=== PATIENT | male | born 1970 | race Two or more races ===

== ENCOUNTER 2018-03-25 04:03 | Emergency (ER) | payer SELFPAY ==
[~2018-03-25] VITALS: Ht 152.4 cm; Wt 86.2 kg
[2018-03-25] MEDS ORDERED: KETOROLAC 30 MG/ML VIAL. IV ONE (04:45)
[2018-03-25] MEDS ORDERED: DEXAMETHASONE SOD PHOS 4 MG/ML VIAL IV ONE (04:45)
--- NOTE | 2018-03-25 04:53 | PHYS DOC ---
Past Medical History Past Medical History: Hypertension, Other Additional Past Medical Histor: "Neck swelling" Past Surgical History: No Surgical History Additional Information: 1 pack per week Alcohol Use: Rarely Drug Use: None Adult General Chief Complaint Chief Complaint: Neck Pain HPI HPI Patient is a 47 year old male who presents with neck swelling, tender cervical lymphadenopathy, starting 2 days prior to ED arrival. Patient states neck feels tight around his throat extending onto his chest. Denies sore throat, throat tightness, airway swelling, difficulty speaking, dysphonia or dysphagia. No fever chills, nausea vomiting and sweats. Reports only mild rhinitis. States he had similar symptoms approximately 2 years ago since [place] out of state. No other acute symptoms or complaints. [] Review of Systems Review of Systems Review symptoms as per history of present illness. All other review symptoms are negative. All other systems were reviewed and found to be within normal limits, except as documented in this note. Current Medications Current Medications Current Medications Medications (Trade) Dose Ordered Sig/Clyde Start Time Stop Time Status Last Admin Dose Admin Dexamethasone Sodium Phosphate (Decadron) 10 mg 1X ONCE 03/25/18 04:45 03/25/18 04:46 DC 03/25/18 04:51 10 MG Ketorolac Tromethamine (Toradol 30mg Vial) 30 mg 1X ONCE 03/25/18 04:45 03/25/18 04:46 DC 03/25/18 04:52 30 MG Allergies Allergies Allergies Coded Allergies Type Severity Reaction Last Updated Verified No Known Drug Allergies 03/25/18 No Physical Exam Physical Exam Constitutional: Well developed, well nourished, no acute distress, non-toxic appearance. [] HENT: Normocephalic, atraumatic, bilateral external ears normal, oropharynx moist, nose normal, no dysphonia drooling or trismus. [] Eyes: PERRLA, EOMI, conjunctiva normal, no discharge. [] Neck: Normal range of motion, anterior cervical lymphadenopathy with moderate submandibular swelling. [] Cardiovascular:Heart rate regular rhythm, no murmur [] Lungs & Thorax: Bilateral breath sounds clear to auscultation.[] Abdomen: Bowel sounds normal, soft, no tenderness. [] Skin: Warm, dry. [] Back: No tenderness. [] Extremities: No tenderness, no clubbing, no edema. [] Neurologic: Alert and oriented X 3, normal motor function, normal sensory function, no focal deficits noted. [] Psychologic: Affect normal, judgement normal, mood normal. [] Current Patient Data Vital Signs Vital Signs Date Time Temp Pulse Resp B/P (MAP) Pulse Ox O2 Delivery O2 Flow Rate FiO2 03/25/18 05:02 80 14 137/71 (93) 98 Room Air 03/25/18 04:03 98.1 98.1 Lab Values Laboratory Tests Test 03/25/18 04:45 White Blood Count 11.0 x10^3/uL (4.0-11.0) Red Blood Count 5.59 x10^6/uL (4.30-5.70) Hemoglobin 16.7 g/dL (13.0-17.5) Hematocrit 48.4 % (39.0-53.0) Mean Corpuscular Volume 87 fL (79-100) Mean Corpuscular Hemoglobin 30 pg (25-35) Mean Corpuscular Hemoglobin Concent 35 g/dL (31-37) Red Cell Distribution Width 13.6 % (11.5-14.5) Platelet Count 239 x10^3/uL (140-400) Neutrophils (%) (Auto) 50 % (31-73) Lymphocytes (%) (Auto) 34 % (24-48) Monocytes (%) (Auto) 9 % (0-9) Eosinophils (%) (Auto) 6 % (0-3) H Basophils (%) (Auto) 0 % (0-3) Neutrophils # (Auto) 5.5 x10^3uL (1.8-7.7) Lymphocytes # (Auto) 3.7 x10^3/uL (1.0-4.8) Monocytes # (Auto) 1.0 x10^3/uL (0.0-1.1) Eosinophils # (Auto) 0.7 x10^3/uL (0.0-0.7) Basophils # (Auto) 0.0 x10^3/uL (0.0-0.2) Heterophil Agglutinins Negative (NEGATIVE) Laboratory Tests 03/25/18 04:45 EKG EKG [] Radiology/Procedures Radiology/Procedures [Chest x-ray: No acute cardiopulmonary disease.] Course & Med Decision Making Course & Med Decision Making Pertinent Labs and Imaging studies reviewed. (See chart for details) [Patient with anterior cervical lymphadenopathy. No fever, elevated white blood cell count. Patient is able to swallow without difficulty. Lab work performed and is reassuring. We'll place on brief course of antibiotics and steroids with instructions to closely monitor symptoms and to follow-up with his PCP in the next 2-3 days for reevaluation. Return precautions reviewed. Patient verbalizes understanding agreement with discharge instructions prior to departure.] Dragon Disclaimer Dragon Disclaimer This electronic medical record was generated, in whole or in part, using a voice recognition dictation system. Departure Departure Impression: Primary Impression: Cervical lymphadenopathy Disposition: HOME, SELF-CARE Condition: GOOD Additional Instructions: You were evaluated emergency department for swelling lymph nodes of your neck. Lab work was performed and was nondiagnostic. Please take steroids for the next 5 days and antibiotics as directed. Follow-up with your PCP for reevaluation. If you develop new or worsening symptoms, please return to the emergency department. Scripts Azithromycin (ZITHROMAX) 250 Mg Tablet 1 PKG PO UD, #6 TAB 2 pills by mouth day 1, one pill by mouth days 2 through 5 Prov: JAK DUBOSE DO 03/25/18 Prednisone (PREDNISONE) 50 Mg Tablet 1 TAB PO DAILY, #5 TAB Prov: JAK DUBOSE DO 03/25/18 JAK DUBOSE DO Mar 25, 2018 04:53
[2018-03-25 04:54] LABS: BASO % 0 % (0-3); EOS # 0.7 x10^3/uL (0.0-0.7); EOS % 6 % (0-3); HEMATOCRIT 48.4 % (39.0-53.0); HEMOGLOBIN 16.7 g/dL (13.0-17.5); LYMPH # 3.7 x10^3/uL (1.0-4.8); LYMPH % 34 % (24-48); MEAN CORPUSCULAR HEMOGLOBIN 30 pg (25-35); MEAN CORPUSCULAR HGB CONC 35 g/dL (31-37); MEAN CORPUSCULAR VOLUME 87 fL (79-100); MONO % 9 % (0-9); NEUT # 5.5 x10^3uL (1.8-7.7); NEUT % 50 % (31-73); PLATELET COUNT 239 x10^3/uL (140-400); RED BLOOD COUNT 5.59 x10^6/uL (4.30-5.70); RED CELL DISTRIBUTION WIDTH 13.6 % (11.5-14.5)
--- NOTE | 2018-03-25 05:01 | RAD ---
Chest radiograph 03/25/2018 4:42 AM INDICATION: Chest pain COMPARISON: None available TECHNIQUE: Frontal view of the chest is provided. FINDINGS: The cardiomediastinal silhouette is within normal limits. There are no pleural effusions. There is no pulmonary vascular congestion. There is no pneumothorax. The lungs are clear. No significant osseous abnormality is identified. IMPRESSION: No acute cardiopulmonary process. Electronically signed by: Anjali Gaitan MD (03/25/2018 4:58 AM) [facility]
[2018-03-25 05:03] LABS: MONONUCLEOSIS PATIENT NEGATIVE (NEGATIVE)
[2018-03-25 05:32] VITALS: BP 139/66
[2018-03-25] MEDS ORDERED: PRED50TA PO (05:57)
[2018-03-25] MEDS ORDERED: AZIT250T PO (05:57)
== END 2018-03-25 06:00 | disposition home or self-care (01) ==
LOC: ER 04:03
DX: R59.0 Localized enlarged lymph nodes (principal); I10 Essential (primary) hypertension; F17.200 Nicotine dependence, unspecified, uncomplicated; J31.0 Chronic rhinitis
CPT/HCPCS: 36415; 71045; 85025; 86140; 86308; 96374; 96375; 99284; J1100; J1885

== ENCOUNTER 2018-09-15 18:23 | Emergency (ER) | payer SELFPAY ==
[~2018-09-15] VITALS: Ht 162.6 cm; Wt 81.6 kg
[~2018-09-15 18:23] MED LIST: AZIT250T PO; PRED50TA PO
[2018-09-15 18:31] VITALS: BP 211/107
[2018-09-15] MEDS ORDERED: NAPROXEN 500 MG TABLET PO STA (18:35)
[2018-09-15] MEDS ORDERED: HYDROcodone/APAP 5/325MG 1 TAB TABLET PO ONE (18:45)
[2018-09-15] MEDS ORDERED: CYCLOBENZAPRINE 10 MG TABLET. PO ONE (18:45)
--- NOTE | 2018-09-15 19:22 | RAD ---
LUMBAR SPINE 2-3V History: Pain after a fall. FINDINGS: Vertebral body height maintained. Mild degenerative spondylosis. No significant subluxation. No aggressive bone destruction or evidence of acute fracture. Mild left convexity lumbar scoliosis. IMPRESSION: Degenerative spondylosis.. Electronically signed by: Noble Quezada MD (09/15/2018 7:19 PM) [facility]
[2018-09-15] MEDS ORDERED: DICL50TA4 PO (19:35)
[2018-09-15] MEDS ORDERED: CYCL10TA2 PO (19:35)
[2018-09-15] MEDS ORDERED: METH4TAB2 PO (19:35)
--- NOTE | 2018-09-15 19:36 | PHYS DOC ---
Past Medical History Past Medical History: Hypertension, Other Additional Past Medical Histor: "NECK SWELLING" (POOJA DAVIDSON APRN) Past Surgical History: No Surgical History (POOJA DAVIDSON APRN) Additional Information: "1 PACK A WEEK" Alcohol Use: Rarely Drug Use: None (POOJA DAVIDSON APRN) Adult General Chief Complaint Chief Complaint: LOWER BACK PAIN OR INJURY [facility] HPI Patient is a 48 year old male with history of uncontrolled hypertension who presents to the ED today complaining of 8 out of 10 low back pain status post falling down one step 2 days ago. Patient denies any loss of consciousness. Denies any loss of bowel bladder function. Denies any pain radiating to bilateral lower extremities. Describes this pain as sharp and intermittent worse on sitting. States he has tried using ice as well as aspirin with no relief. (POOJA DAVIDSON APRN) Review of Systems Review of Systems Constitutional: Denies fever or chills [] Respiratory: Denies cough or shortness of breath [] Cardiovascular: No additional information not addressed in HPI [] GI: Denies abdominal pain, nausea, vomiting, bloody stools or diarrhea [] : Denies dysuria or hematuria [] Musculoskeletal: Reports low back pain Integument: Denies rash or skin lesions [] Neurologic: Denies headache, focal weakness or sensory changes [] All other systems were reviewed and found to be within normal limits, except as documented in this note. (POOJA DAVIDSON APRN) Current Medications Current Medications Current Medications Medications (Trade) Dose Ordered Sig/Clyde Start Time Stop Time Status Last Admin Dose Admin Acetaminophen/ Hydrocodone Bitart (Lortab 5/325) 2 tab 1X ONCE 09/15/18 18:45 09/15/18 18:46 DC 09/15/18 18:41 2 TAB Cyclobenzaprine HCl (Flexeril) 10 mg 1X ONCE 09/15/18 18:45 09/15/18 18:46 DC 09/15/18 18:41 10 MG Naproxen (Naprosyn) 500 mg 1X STAT 09/15/18 18:35 09/15/18 18:36 DC 09/15/18 18:41 500 MG (NOBLE BROWN DO) Allergies Allergies Allergies Coded Allergies Type Severity Reaction Last Updated Verified No Known Drug Allergies 03/25/18 No (NOBLE BROWN DO) Physical Exam Physical Exam Constitutional: Well developed, well nourished, no acute distress, non-toxic appearance. [] HENT: Normocephalic, bilateral external ears normal, oropharynx moist, no oral exudates, nose normal. [] Neck: Normal range of motion, no tenderness, supple, no stridor. [] Cardiovascular:Heart rate regular rhythm, no murmur [] Lungs & Thorax: Bilateral breath sounds clear to auscultation [] Abdomen: Bowel sounds normal, soft, no tenderness, no masses, no pulsatile masses. [] Skin: Warm, dry, no erythema, no rash. [] Back: Tenderness on palpation of coccyx, no CVA tenderness. [] Extremities: No tenderness, no cyanosis, no clubbing, ROM intact, no edema. [] Neurologic: Alert and oriented X 3, normal motor function, normal sensory function, no focal deficits noted. [] Psychologic: Affect normal, judgement normal, mood normal. [] (POOJA DAVIDSON APRN) Current Patient Data Vital Signs Vital Signs Date Time Temp Pulse Resp B/P (MAP) Pulse Ox O2 Delivery O2 Flow Rate FiO2 09/15/18 18:41 16 Room Air 09/15/18 18:31 98.4 139 211/107 (141) 97 98.4 (NOBLE BROWN DO) EKG EKG [] (POOJA DAVIDSON APRN) Radiology/Procedures Radiology/Procedures []PROCEDURE: LUMBAR SPINE 2-3V LUMBAR SPINE 2-3V History: Pain after a fall. FINDINGS: Vertebral body height maintained. Mild degenerative spondylosis. No significant subluxation. No aggressive bone destruction or evidence of acute fracture. Mild left convexity lumbar scoliosis. IMPRESSION: Degenerative spondylosis.. Electronically signed by: Noble Quezada MD (09/15/2018 7:19 PM) [facility] DICTATED and SIGNED BY: NOBLE QUEZADA MD DATE: 09/15/181918 (POOJA DAVIDSON APRN) Course & Med Decision Making Course & Med Decision Making Pertinent Labs and Imaging studies reviewed. (See chart for details) This is a 48-year-old male patient presented to the ED today with low back pain status post falling down one step 2 days ago. No loss of consciousness, lumbar spine x-rays are negative. Blood pressure was 211/107 with a heart rate of 139. Patient has history of hypertension and states he was supposed to stop using caffeine and stop smoking then follow-up with the primary care doctor for further monitoring of blood pressure, he states he did not do this. We give him pain medications in the ED. We will recheck his vitals. We provided him a list of doctors to follow up with. (POOJA DAVIDSON APRN) Dragon Disclaimer Dragon Disclaimer This electronic medical record was generated, in whole or in part, using a voice recognition dictation system. (POOJA DAVIDSON APRN) Departure Departure Impression: Primary Impression: Lumbar contusion Additional Impressions: Fall down steps Accelerated hypertension Tachycardia Disposition: HOME, SELF-CARE Condition: STABLE Referrals: NO PCP (PCP) Please follow-up with a primary care doctor for your blood pressure Patient Instructions: Contusion, Hypertension Additional Instructions: You were evaluated in the emergency room after falling, your x-rays were negative for any acute findings. Continue icing the affected area. Take the prescribed medications as ordered. Please consider establishing care with a primary care doctor for follow-up with your blood pressure. Scripts Methylprednisolone (MEDROL) 4 Mg Tab.ds.pk 1 PKG PO UD, #1 PKG Prov: STUARTPOOJA PERALTA 09/15/18 Diclofenac Sodium (DICLOFENAC SODIUM) 50 Mg Tablet.dr 1 TAB PO BID, #20 TAB 0 Refills Prov: TALYAYuliPOOJA APRN 09/15/18 Cyclobenzaprine Hcl (CYCLOBENZAPRINE HCL) 10 Mg Tablet 1 TAB PO TID, #30 TAB Prov: POOJA DAVIDSON APRN 09/15/18 Attending Signature Attending Signature I have reviewed the PA/WIRELESS SALES REPRESENTATIVE's note and plan of care. I was available for consultation as needed during the patient's visit in the emergency department. I agree with the clinical impression, plan, and disposition. (NOBLE BROWN DO) Problem Qualifiers Primary Impression: Lumbar contusion Encounter type: initial encounter Qualified Codes: S30.0XXA - Contusion of lower back and pelvis, initial encounter Additional Impressions: Fall down steps Encounter type: initial encounter Qualified Codes: W10.8XXA - Fall (on) (from) other stairs and steps, initial encounter POOJA DAVIDSON APRN September 15, 2018 19:36 NOBLE BROWN DO September 17, 2018 02:03
== END 2018-09-15 19:50 | disposition home or self-care (01) ==
LOC: ER 18:23
DX: S30.0XXA Contusion of lower back and pelvis, initial encounter (principal); R00.0 Tachycardia, unspecified; I10 Essential (primary) hypertension; M47.896 Other spondylosis, lumbar region; W10.8XXA Fall (on) (from) other stairs and steps, initial encounter; Y93.89 Activity, other specified; Y92.89 Other specified places as the place of occurrence of the external cause; Y99.8 Other external cause status
CPT/HCPCS: 72100; 99284

== ENCOUNTER 2018-12-08 13:14 | Emergency (ER) | payer SELFPAY ==
[~2018-12-08] VITALS: Ht 165.1 cm; Wt 84.4 kg
[~2018-12-08 13:14] MED LIST changes: +CYCL10TA2 PO; +DICL50TA4 PO; +METH4TAB2 PO
[2018-12-08 13:35] VITALS: BP 190/114
--- NOTE | 2018-12-08 13:52 | PHYS DOC ---
Past Medical History Past Medical History: Hypertension, Other Additional Past Medical Histor: "NECK SWELLING" Past Surgical History: No Surgical History Alcohol Use: Rarely Drug Use: None Adult General Chief Complaint Chief Complaint: MECHANICAL FALL HPI HPI Patient is a 48-year-old male who's had some chronic back pain issues who presents with an exacerbation of that pain. He states he was helping a friend move a refrigerator when it fell back and CABG chart his back. He denies any radicular symptoms. He's not had any bowel or bladder dysfunction. He denies any saddle paresthesias. He states the pain is severe and much worse when he tries to stand up straight or walk. At this point, is not taking anything at home to help with the discomfort.[] Review of Systems Review of Systems Constitutional: Denies fever or chills [] Eyes: Denies change in visual acuity, redness, or eye pain [] HENT: Denies nasal congestion or sore throat [] Respiratory: Denies cough or shortness of breath [] Cardiovascular: No additional information not addressed in HPI [] GI: Denies abdominal pain, nausea, vomiting, bloody stools or diarrhea [] : Denies dysuria or hematuria [] Musculoskeletal: Per history of present illness[] Integument: Denies rash or skin lesions [] Neurologic: Denies headache, focal weakness or sensory changes [] Endocrine: Denies polyuria or polydipsia [] All other systems were reviewed and found to be within normal limits, except as documented in this note. Current Medications Current Medications Current Medications Medications (Trade) Dose Ordered Sig/[facility] Start Time Stop Time Status Last Admin Dose Admin Ketorolac Tromethamine (Toradol Im) 60 mg 1X ONCE 12/08/18 14:00 12/08/18 14:01 Orphenadrine Citrate (Norflex) 60 mg 1X ONCE 12/08/18 14:00 12/08/18 14:01 Allergies Allergies Allergies Coded Allergies Type Severity Reaction Last Updated Verified No Known Drug Allergies 03/25/18 No Physical Exam Physical Exam Constitutional: Well developed, well nourished, mild to moderate distress, non- toxic appearance. [] HENT: Normocephalic, atraumatic, bilateral external ears normal, oropharynx moist, no oral exudates, nose normal. [] Eyes: PERRLA, EOMI, conjunctiva normal, no discharge. [] Neck: Normal range of motion, no tenderness, supple, no stridor. [] Cardiovascular:Heart rate regular rhythm, no murmur [] Lungs & Thorax: Bilateral breath sounds clear to auscultation [] Abdomen: Bowel sounds normal, soft, no tenderness, no masses, no pulsatile masses. [] Skin: Warm, dry, no erythema, no rash. [] Back: Lumbar paraspinal muscle spasm left greater than right no midline vertebral tenderness he is tender over the left SI joint. [] Extremities: No tenderness, no cyanosis, no clubbing, ROM intact, no edema. [] Neurologic: Alert and oriented X 3, normal motor function, normal sensory function, no focal deficits noted. [] Psychologic anxious. [] EKG EKG [] Radiology/Procedures Radiology/Procedures [] Course & Med Decision Making Course & Med Decision Making Pertinent Labs and Imaging studies reviewed. (See chart for details) [ED course: Evaluation reveals a 48-year-old male with acute exacerbation of low back pain. He was given Toradol and Norflex during his stay in the department which did help alleviate his symptoms. I'll provide him with an anti- inflammatory and muscle relaxer to take at home.] Dragon Disclaimer Dragon Disclaimer This electronic medical record was generated, in whole or in part, using a voice recognition dictation system. Departure Departure Impression: Primary Impression: Acute lumbar myofascial strain Disposition: 01 HOME, SELF-CARE Condition: IMPROVED Referrals: NO PCP (PCP) Patient Instructions: Back Pain, Adult Additional Instructions: Return to the emergency department with any new or concerning symptoms Scripts Methocarbamol (ROBAXIN) 500 Mg Tablet 1 TAB PO Q12HR for muscle spasm, #30 TAB Prov: RUSSELL ENRIQUEZ DO 12/08/18 Naproxen (NAPROXEN) 500 Mg Tablet 1 TAB PO BID PRN for PAIN, #30 TAB 1 Refill Prov: RUSSELL ENRIQUEZ DO 12/08/18 Problem Qualifiers Primary Impression: Acute lumbar myofascial strain Encounter type: initial encounter Qualified Codes: S39.012A - Strain of muscle, fascia and tendon of lower back, initial encounter RUSSELL ENRIQUEZ DO Dec 08, 2018 13:52
[2018-12-08] MEDS ORDERED: METH-37 PO (13:57)
[2018-12-08] MEDS ORDERED: NAPR-514 PO (13:57)
[2018-12-08] MEDS ORDERED: ORPHENADRINE CITRATE 60 MG/2 ML VIAL. IM ONE (14:00)
[2018-12-08] MEDS ORDERED: KETOROLAC 60 MG/2 ML VIAL. IM ONE (14:00)
== END 2018-12-08 14:44 | disposition home or self-care (01) ==
LOC: ER 13:14
DX: S39.012A Strain of muscle, fascia and tendon of lower back, initial encounter (principal); G89.29 Other chronic pain; I10 Essential (primary) hypertension; W20.8XXA Other cause of strike by thrown, projected or falling object, initial encounter; Y93.89 Activity, other specified; Y92.89 Other specified places as the place of occurrence of the external cause; Y99.8 Other external cause status
CPT/HCPCS: 96372; 99284; J1885; J2360